=== PATIENT | female | born 1985 | race Caucasian/White ===

== ENCOUNTER 2016-10-14 18:40 | Inpatient (IN) | payer OTHER ==
[~2016-10-14] VITALS: Ht 167.6 cm; Wt 67.4 kg
[~2016-10-14 18:40] MED LIST: IBUPROFEN800 MG PO; SUBOXONE 8 MG-1 EAC2 SL
[2016-10-14 20:03] LABS: EOSINOPHIL (%) 1.4 % (0-5); EOSINOPHIL COUNT 0.1 K/uL (0-0.3); HEMATOCRIT 42.5 % (36.0-46.0); IMMATURE GRANULOCYTE (%) 0.5 % (0.0-0.7); INSTRUMENT ABS NEUTROPHIL CT 2.7 K/uL; LYMPHOCYTE COUNT 2.5 K/uL (1.0-2.8); MCH 32.5 PG (29.0-34.0); MCHC 32.2 G/DL (30.0-36.0); MEAN PLAT.VOLUME 9.7 uM^3 (9.5-12.4); MONOCYTE (%) 8.6 % (3-12); MONOCYTE COUNT 0.5 K/uL (0-0.8); NEUTROPHIL (%) 46.2 % (45-76); NEUTROPHIL COUNT 2.7 K/uL (1.8-6.4); PLATELET COUNT 182 K/uL (156-360); RBC DIS.WIDTH-CV 14.6 % (11.8-14.6); RBC DIS.WIDTH-SD 54.4 % (39-53); RED BLOOD COUNT 4.21 M/uL (3.80-5.20); WHITE BLOOD COUNT 5.8 K/uL (4.1-10.2)
[2016-10-14 20:06] LABS: BASE EXCESS -2.8 mEq/L (-3 to +3); BICARBONATE 23.7 mEq/L (22-26); CARBOXY HGB 6.8 % (0-5); COMMENTS - BLOOD GASES C+A+; DEVICE 840 VENT; FI02 50 %; MECHANICAL RATE 14 resp/min; METHEMOGLOBIN 0.8 % (0-1.5); MODE AC; PCO2 47 mm Hg (35-45); PO2 139 mm Hg (80-100); SITE RR; TIDAL VOLUME 500 ML; TOTAL RESP RATE 14 resp/min; pH 7.31 (7.35-7.45)
[2016-10-14 20:07] LABS: PEEP 5 CM/H20
[2016-10-14 20:16] LABS: ADD MIUA? NO; BILIRUBIN NEGATIVE; BLOOD NEGATIVE; COLOR STRAW ((YELLOW)); GLUCOSE (STRIP) NEGATIVE; KETONES NEGATIVE; LEUKOCYTES NEGATIVE; NITRITE NEGATIVE; PROTEIN (STRIP) NEGATIVE; SPECIFIC GRAVITY 1.002 (1.000-1.030); UROBILINOGEN 0.2 MG/DL (0.2-1.0)
[2016-10-14 20:18] LABS: CHLORIDE 113 mEq/L (99-109); POTASSIUM 3.6 mEq/L (3.7-5.4); SODIUM 145 mEq/L (136-147)
[2016-10-14 20:20] LABS: GLUCOSE 103 mg/dL (70-99)
[2016-10-14 20:21] LABS: ANION GAP 9 MEQ/L (2-14)
[2016-10-14 20:22] LABS: TOTAL BILIRUBIN 0.1 mg/dL (0.0-1.0)
[2016-10-14 20:23] LABS: ALKALINE PHOSPHATASE 93 IU/L (3-129); SERUM ETHYL ALCOHOL 425 mg/dL; TROP-I INTERPRETATION NEGATIVE; TROPONIN-I < 0.01 ng/mL (0.0-0.30)
[2016-10-14 20:24] LABS: GFR ESTIMATE (CALCULATED) > 59 mL/min/
[2016-10-14 20:25] LABS: AMPHETAMINE NEGATIVE (500 ng/mL); BARBITURATES NEGATIVE (200 ng/mL); BENZODIAZEPINES NEGATIVE (150 ng/mL); COCAINE NEGATIVE (150 ng/mL); INTERNAL CONTROLS VALID? YES; METHADONE NEGATIVE (200 ng/mL); METHAMPHETAMINE NEGATIVE (500 ng/mL); OPIATES (MORPHINE) PRESUMPTIVE POSITIVE (100 ng/mL); OXYCODONE NEGATIVE (100 ng/mL); PHENCYCLIDINE NEGATIVE (25 ng/mL); PROPOXYPHENE NEGATIVE (300 ng/mL); THC CANNABINOIDS NEGATIVE (50 ng/mL); TRICYCLIC ANTIDEPRESSANTS NEGATIVE (300 ng/mL)
[2016-10-14 20:25] LABS: UREA NITROGEN (BUN) 5 mg/dL (9-23)
[2016-10-14 20:27] LABS: CREATINE KINASE 50 IU/L (1-294); QUANTITATIVE HCG < 4.0 MIU/ML; TOTAL CK 50 IU/L (1-294)
[2016-10-14 20:28] LABS: CK-MB 0.9 ng/mL (0.0-4.9)
[2016-10-14 20:34] LABS: ADD MEDTOX COMMENT Y
[2016-10-14 23:10] VITALS: BP 107/78
[2016-10-14 23:30] VITALS: BP 125/78
[2016-10-15] VITALS: BP 119/94
[2016-10-15 00:52] LABS: METH RESISTANT S AUREUS PCR POSITIVE (NEGATIVE)
[2016-10-15 00:57] LABS: PROBE CHECK PASS
[2016-10-15 01:00] VITALS: BP 105/75
[2016-10-15 02:00] VITALS: BP 109/71
== END 2016-10-15 01:56 | disposition left against medical advice (07) | DRG 917 ==
LOC: EME 18:40 → EDOF 20:56 → 4WEST 23:11
PROVIDERS: Anesthesiology; Emergency Medicine
DX: T51.0X1A Toxic effect of ethanol, accidental (unintentional), initial encounter (principal); J96.90 Respiratory failure, unspecified, unspecified whether with hypoxia or hypercapnia; T40.601A Poisoning by unspecified narcotics, accidental (unintentional), initial encounter; R40.0 Somnolence; F10.129 Alcohol abuse with intoxication, unspecified; Y90.8 Blood alcohol level of 240 mg/100 ml or more; F11.10 Opioid abuse, uncomplicated; F17.200 Nicotine dependence, unspecified, uncomplicated; J01.30 Acute sphenoidal sinusitis, unspecified
CPT/HCPCS: 36600; 70450; 71010; 80053; 81003; 82550; 82553; 82803; 83605; 83930; 84478; 84484; 84702; 84999; 85025; 85027; 87040; 87070; 87205; 87502; 87641; 94002; 94003; 99202; G0480; J0696; J1650; J2310; J2704; J3010; J7030; J7050; J7120; S0028

== ENCOUNTER 2016-10-23 22:59 | Emergency (ER) | payer OTHER | END 2016-10-23 23:10 | LOC: EME 22:59 | DX: S80.211A Abrasion, right knee, initial encounter (principal); S80.212A Abrasion, left knee, initial encounter; R45.1 Restlessness and agitation; F10.129 Alcohol abuse with intoxication, unspecified; Z02.89 Encounter for other administrative examinations | CPT/HCPCS: 99281; 99283 ==

== ENCOUNTER 2017-01-08 21:26 | Emergency (ER) | payer OTHER ==
[~2017-01-08] VITALS: Ht 165.1 cm; Wt 68.1 kg
[2017-01-08 22:51] LABS: HEMATOCRIT 36.9 % (36.0-46.0); MCH 30.6 PG (29.0-34.0); MCHC 32.8 G/DL (30.0-36.0); MCV 93.2 FL (83-99); MEAN PLAT.VOLUME 9.3 uM^3 (9.5-12.4); PLATELET COUNT 155 K/uL (156-360); RBC DIS.WIDTH-SD 48.3 % (39-53); RED BLOOD COUNT 3.96 M/uL (3.80-5.20); WHITE BLOOD COUNT 5.3 K/uL (4.1-10.2)
[2017-01-08 23:02] LABS: CHLORIDE 109 mEq/L (99-109); SODIUM 145 mEq/L (136-147)
[2017-01-08 23:04] LABS: GLUCOSE 117 mg/dL (70-99)
[2017-01-08 23:05] LABS: ANION GAP 11 MEQ/L (2-14)
[2017-01-08 23:08] LABS: GFR ESTIMATE (CALCULATED) > 59 mL/min/
[2017-01-08 23:09] LABS: UREA NITROGEN (BUN) 6 mg/dL (9-23)
[2017-01-08 23:11] LABS: SALICYLATE < 5.0 MG/DL (15-30)
[2017-01-08 23:14] LABS: AMPHETAMINE NEGATIVE (500 ng/mL); BARBITURATES NEGATIVE (200 ng/mL); BENZODIAZEPINES NEGATIVE (150 ng/mL); COCAINE NEGATIVE (150 ng/mL); INTERNAL CONTROLS VALID? YES; METHADONE NEGATIVE (200 ng/mL); METHAMPHETAMINE NEGATIVE (500 ng/mL); OPIATES (MORPHINE) NEGATIVE (100 ng/mL); OXYCODONE NEGATIVE (100 ng/mL); PHENCYCLIDINE NEGATIVE (25 ng/mL); PROPOXYPHENE NEGATIVE (300 ng/mL); THC CANNABINOIDS NEGATIVE (50 ng/mL); TRICYCLIC ANTIDEPRESSANTS NEGATIVE (300 ng/mL)
[2017-01-08 23:17] LABS: QUANTITATIVE HCG < 4.0 MIU/ML
[2017-01-08 23:34] LABS: SERUM ETHYL ALCOHOL 249 mg/dL
[2017-01-09 07:15] VITALS: BP 110/76
== END 2017-01-09 07:31 | disposition home or self-care (01) ==
LOC: EME → EDBD 21:26 → EME 21:26
PROVIDERS: Emergency Medicine
DX: F10.129 Alcohol abuse with intoxication, unspecified (principal); Y90.8 Blood alcohol level of 240 mg/100 ml or more; F32.9 Major depressive disorder, single episode, unspecified; F17.200 Nicotine dependence, unspecified, uncomplicated
CPT/HCPCS: 80048; 84702; 85027; 90837; 99281; 99284; G0480; J1630; J2250

== ENCOUNTER 2017-01-13 21:11 | Emergency (ER) | payer OTHER ==
[~2017-01-13] VITALS: Ht 165.1 cm; Wt 63.0 kg
[2017-01-13 21:41] VITALS: BP 00/00
== END 2017-01-13 21:44 ==
LOC: EME 21:11
DX: F10.129 Alcohol abuse with intoxication, unspecified (principal); Z53.29 Procedure and treatment not carried out because of patient's decision for other reasons
CPT/HCPCS: 99281; 99282

== ENCOUNTER 2017-04-03 18:28 | Emergency (ER) | payer OTHER ==
[~2017-04-03] VITALS: Ht 165.1 cm; Wt 61.8 kg
[2017-04-03 19:05] VITALS: BP 116/63
== END 2017-04-03 19:07 ==
LOC: EME 18:28
DX: F10.129 Alcohol abuse with intoxication, unspecified (principal); Y90.8 Blood alcohol level of 240 mg/100 ml or more; F17.200 Nicotine dependence, unspecified, uncomplicated
CPT/HCPCS: 99281; 99284

== ENCOUNTER 2017-04-23 21:44 | Inpatient (IN) | payer OTHER ==
[~2017-04-23] VITALS: Ht 167.6 cm; Wt 73.6 kg
[2017-04-23 23:06] LABS: HEMATOCRIT 35.7 % (36.0-46.0); MCH 29.9 PG (29.0-34.0); MCHC 32.8 G/DL (30.0-36.0); MCV 91.3 FL (83-99); MEAN PLAT.VOLUME 9.6 uM^3 (9.5-12.4); PLATELET COUNT 137 K/uL (156-360); RBC DIS.WIDTH-CV 16.4 % (11.8-14.6); RBC DIS.WIDTH-SD 55.3 % (39-53); RED BLOOD COUNT 3.91 M/uL (3.80-5.20); WHITE BLOOD COUNT 4.6 K/uL (4.1-10.2)
[2017-04-23 23:16] LABS: INTER. NORMALIZED RATIO 0.9; PROTHROMBIN TIME 10.3 SEC (10.2-12.9)
[2017-04-23 23:18] LABS: CHLORIDE 106 mEq/L (99-109); POTASSIUM 3.7 mEq/L (3.7-5.4); SODIUM 139 mEq/L (136-147)
[2017-04-23 23:19] LABS: PTT 26.3 SEC (25-37)
[2017-04-23 23:20] LABS: GLUCOSE 104 mg/dL (70-99)
[2017-04-23 23:21] LABS: ANION GAP 11 MEQ/L (2-14)
[2017-04-23 23:22] LABS: TOTAL BILIRUBIN 0.1 mg/dL (0.0-1.0)
[2017-04-23 23:23] LABS: ALKALINE PHOSPHATASE 89 IU/L (3-129)
[2017-04-23 23:24] LABS: GFR ESTIMATE (CALCULATED) > 59 mL/min/
[2017-04-23 23:25] LABS: UREA NITROGEN (BUN) 7 mg/dL (9-23)
[2017-04-23 23:33] LABS: QUANTITATIVE HCG < 4.0 MIU/ML
[2017-04-23 23:59] LABS: SERUM ETHYL ALCOHOL 344 mg/dL
[2017-04-24] MEDS ORDERED: PAXIL30 MG PO (05:53)
[2017-04-24] MEDS ORDERED: VISTARIL50 MG PO (05:54)
[2017-04-24] MEDS ORDERED: DESYREL100 MG PO (05:55)
[2017-04-24 07:02] LABS: AMPHETAMINE NEGATIVE (500 ng/mL); BARBITURATES NEGATIVE (200 ng/mL); BENZODIAZEPINES NEGATIVE (150 ng/mL); COCAINE NEGATIVE (150 ng/mL); INTERNAL CONTROLS VALID? YES; METHADONE NEGATIVE (200 ng/mL); METHAMPHETAMINE NEGATIVE (500 ng/mL); OPIATES (MORPHINE) NEGATIVE (100 ng/mL); OXYCODONE NEGATIVE (100 ng/mL); PHENCYCLIDINE NEGATIVE (25 ng/mL); PROPOXYPHENE NEGATIVE (300 ng/mL); THC CANNABINOIDS NEGATIVE (50 ng/mL); TRICYCLIC ANTIDEPRESSANTS NEGATIVE (300 ng/mL)
[2017-04-24 07:22] VITALS: BP 115/73
[2017-04-24 08:09] LABS: HEMATOCRIT 33.9 % (36.0-46.0); MCV 94.4 FL (83-99)
[2017-04-24] MEDS ORDERED: ZUBSOLV 5.7-1.1 EACH SL (08:59)
[2017-04-24 12:00] VITALS: BP 119/82
[2017-04-24 16:21] VITALS: BP 116/60
[2017-04-24 19:42] LABS: HEMATOCRIT 34.4 % (36.0-46.0); MCV 94.8 FL (83-99)
[2017-04-24 20:40] VITALS: BP 108/66; BP 121/71
[2017-04-25] VITALS (7 sets, daily range): BP systolic 108–116; BP diastolic 65–77
[2017-04-25 09:16] LABS: HEMATOCRIT 35.2 % (36.0-46.0); MCV 97.2 FL (83-99)
[2017-04-25 20:03] LABS: HEMATOCRIT 33.7 % (36.0-46.0); MCV 97.7 FL (83-99)
[2017-04-26 06:52] VITALS: BP 123/89
[2017-04-26] MEDS ORDERED: MULTIVITAMIN1 EAC2 PO ×2 (09:33→14:23)
[2017-04-26] MEDS ORDERED: THIAMINE HCL100 MG PO ×2 (09:33→14:23)
[2017-04-26] MEDS ORDERED: PANTOPRAZOLE SO40 MG PO (09:33)
[2017-04-26] MEDS ORDERED: FOLIC ACID1 MG PO ×2 (09:33→14:23)
[2017-04-26] MEDS ORDERED: NICOTINE PATCH1 EAC2 TD (09:33)
[2017-04-26] MEDS ORDERED: CHLORDIAZEPOXID25 MG PO (09:33)
[2017-04-26] MEDS ORDERED: TRAMADOL HCL50 MG PO (09:33)
[2017-04-26 10:38] LABS: HEMATOCRIT 34.9 % (36.0-46.0); MCH 31.4 PG (29.0-34.0); MCHC 32.1 G/DL (30.0-36.0); MCV 97.8 FL (83-99); MEAN PLAT.VOLUME 10.4 uM^3 (9.5-12.4); PLATELET COUNT 110 K/uL (156-360); RBC DIS.WIDTH-CV 16.1 % (11.8-14.6); RBC DIS.WIDTH-SD 58.3 % (39-53); RED BLOOD COUNT 3.57 M/uL (3.80-5.20); WHITE BLOOD COUNT 4.2 K/uL (4.1-10.2)
[2017-04-26 10:39] LABS: HEMATOCRIT 34.7 % (36.0-46.0); MCV 97.7 FL (83-99)
[2017-04-26 11:23] LABS: ALKALINE PHOSPHATASE 80 IU/L (3-129); ANION GAP 6 MEQ/L (2-14); CHLORIDE 109 MEQ/L (99-109); GFR ESTIMATE (CALCULATED) > 59 mL/min/; GLUCOSE 137 mg/dL (70-99); POTASSIUM 4.1 MEQ/L (3.7-5.4); SAMPLE HEMOLYSIS CHECK 0; SAMPLE ICTERIC CHECK 0; SAMPLE LIPEMIA CHECK 0; SODIUM 143 MEQ/L (136-147); TOTAL BILIRUBIN 0.2 MG/DL (0.0-1.0); UREA NITROGEN (BUN) 6 mg/dL (9-23)
[2017-04-26] MEDS ORDERED: NICORETTE2 M1 BC (12:52)
[2017-04-26] MEDS ORDERED: ADVIL200 MG PO (12:53)
[2017-04-26] MEDS ORDERED: NEURONTIN300 MG PO (12:53)
[2017-04-26 13:25] VITALS: BP 112/72
[2017-04-26] MEDS ORDERED: NEXIUM40 MG PO (16:58)
== END 2017-04-26 15:31 | disposition home or self-care (01) | DRG 378 ==
LOC: EME 21:44 → EDOF 04-24 05:42 → 5EAST 04-24 05:42 → ENRESERV 04-24 05:43 → 5EAST 04-24 07:00 → ENPENDDIS 04-26 → 5EAST 04-26 15:31
PROVIDERS: Emergency Medicine; Hospitalist; Internal Medicine
PROC: 0DB68ZX Excision of Stomach, Via Natural or Artificial Opening Endoscopic, Diagnostic (ICD-10-PCS; principal; 2017-04-25)
DX: K29.21 Alcoholic gastritis with bleeding (principal); D62 Acute posthemorrhagic anemia; K70.10 Alcoholic hepatitis without ascites; F10.229 Alcohol dependence with intoxication, unspecified; Y90.8 Blood alcohol level of 240 mg/100 ml or more; F41.9 Anxiety disorder, unspecified; F17.200 Nicotine dependence, unspecified, uncomplicated
CPT/HCPCS: 74177; 80048; 80053; 80306 90; 83735; 84702; 85014; 85018; 85027; 85610; 85730; 86850; 86900; 86901; 88305; 88342 TC; 99281; 99284; 99285; C9113; G0480; J2060; J2270; J2354; J2405; J3411; J3475; J7030; J7050

== ENCOUNTER 2017-08-16 00:09 | Emergency (ER) | payer OTHER ==
[~2017-08-16] VITALS: Ht 167.6 cm; Wt 84.5 kg
[~2017-08-16 00:09] MED LIST changes: +ADVIL200 MG PO; +CHLORDIAZEPOXID25 MG PO; +DESYREL100 MG PO; +FOLIC ACID1 MG PO; +MULTIVITAMIN1 EAC2 PO; +NEURONTIN300 MG PO; +NEXIUM40 MG PO; +NICORETTE2 M1 BC; +NICOTINE PATCH1 EAC2 TD; +PANTOPRAZOLE SO40 MG PO; +PAXIL30 MG PO; +THIAMINE HCL100 MG PO; +TRAMADOL HCL50 MG PO; +VISTARIL50 MG PO; +ZUBSOLV 5.7-1.1 EACH SL
[2017-08-16 09:35] VITALS: BP 108/59
== END 2017-08-16 09:39 | disposition home or self-care (01) ==
LOC: EME 00:09
DX: F10.129 Alcohol abuse with intoxication, unspecified (principal); F41.9 Anxiety disorder, unspecified; F17.200 Nicotine dependence, unspecified, uncomplicated
CPT/HCPCS: 82948; 99281; 99284; J1630

== ENCOUNTER 2017-08-29 17:09 | Emergency (ER) | payer OTHER ==
[~2017-08-29] VITALS: Ht 167.6 cm; Wt 75.0 kg
[2017-08-29 17:56] VITALS: BP 124/85
== END 2017-08-29 17:56 ==
LOC: EME 17:09
DX: F10.129 Alcohol abuse with intoxication, unspecified (principal); F32.9 Major depressive disorder, single episode, unspecified; Z02.89 Encounter for other administrative examinations
CPT/HCPCS: 99281; 99283

== ENCOUNTER 2017-08-30 02:52 | Emergency (ER) | payer OTHER ==
[~2017-08-30] VITALS: Ht 167.6 cm; Wt 77.8 kg
[2017-08-30 04:04] VITALS: BP 120/72
== END 2017-08-30 04:06 ==
LOC: EME 02:52
DX: S60.222A Contusion of left hand, initial encounter (principal); Y35.893A Legal intervention involving other specified means, suspect injured, initial encounter; F41.9 Anxiety disorder, unspecified; F17.200 Nicotine dependence, unspecified, uncomplicated
CPT/HCPCS: 73130; 99281; 99283

== ENCOUNTER 2017-11-24 21:02 | Emergency (ER) | payer OTHER ==
[~2017-11-24] VITALS: Ht 167.6 cm; Wt 83.6 kg
[2017-11-24 21:50] LABS: HEMATOCRIT 31.8 % (36.0-46.0); HEMOGLOBIN 10.4 G/DL (11.9-15.5); MCH 28.9 PG (29.0-34.0); MCHC 32.7 G/DL (30.0-36.0); MCV 88.3 FL (83-99); PLATELET COUNT 187 K/uL (156-360); RBC DIS.WIDTH-CV 17.7 % (11.8-14.6); RBC DIS.WIDTH-SD 57.1 % (39-53); WHITE BLOOD COUNT 7.7 K/uL (4.1-10.2)
[2017-11-24 22:03] LABS: ALBUMIN 4.3 g/dL (3.2-4.8)
[2017-11-24 22:04] LABS: CHLORIDE 98 mEq/L (99-109); POTASSIUM 4.1 mEq/L (3.7-5.4); SODIUM 132 mEq/L (136-147)
[2017-11-24 22:06] LABS: GLUCOSE 87 mg/dL (70-99); TOTAL PROTEIN 7.4 g/dL (6.4-8.3)
[2017-11-24 22:08] LABS: TOTAL BILIRUBIN 0.2 mg/dL (0.0-1.0)
[2017-11-24 22:09] LABS: ALKALINE PHOSPHATASE 104 IU/L (3-129)
[2017-11-24 22:10] LABS: CREATININE 0.8 mg/dL (0.6-1.3); GFR ESTIMATE (CALCULATED) > 59 mL/min/
[2017-11-24 22:11] LABS: AST (GOT) 24 IU/L (2-34); UREA NITROGEN (BUN) 11 mg/dL (9-23)
[2017-11-24 22:13] LABS: ALT (GPT) 16 IU/L (3-49)
[2017-11-24 22:20] LABS: QUANTITATIVE HCG < 4.0 MIU/ML
[2017-11-24 23:53] LABS: APPEARANCE CLEAR ((CLEAR)); BILIRUBIN NEGATIVE; BLOOD NEGATIVE; COLOR STRAW ((YELLOW)); GLUCOSE (STRIP) NEGATIVE; KETONES NEGATIVE; LEUKOCYTES NEGATIVE; NITRITE NEGATIVE; PROTEIN (STRIP) NEGATIVE; SPECIFIC GRAVITY 1.003 (1.000-1.030); UCUL ADDED? NO; UROBILINOGEN 0.2 MG/DL (0.2-1.0)
[2017-11-25] MEDS ORDERED: NAPROXEN500 MG PO (00:54)
[2017-11-25 01:05] VITALS: BP 124/80
== END 2017-11-25 01:12 | disposition home or self-care (01) ==
LOC: EME 21:02
DX: R59.0 Localized enlarged lymph nodes (principal); G89.29 Other chronic pain; M54.5 Low back pain; I10 Essential (primary) hypertension; F41.9 Anxiety disorder, unspecified; F17.200 Nicotine dependence, unspecified, uncomplicated
CPT/HCPCS: 76705; 80053; 81003; 84702; 85027; 99281; 99284; J1885

== ENCOUNTER 2017-11-26 21:07 | Emergency (ER) | payer OTHER ==
[~2017-11-26] VITALS: Ht 160 cm; Wt 80.0 kg
[~2017-11-26 21:07] MED LIST changes: +NAPROXEN500 MG PO
[2017-11-26 21:31] LABS: HEMATOCRIT 33.6 % (36.0-46.0); HEMOGLOBIN 10.9 G/DL (11.9-15.5); MCH 28.6 PG (29.0-34.0); MCHC 32.4 G/DL (30.0-36.0); MCV 88.2 FL (83-99); PLATELET COUNT 173 K/uL (156-360); RBC DIS.WIDTH-CV 17.9 % (11.8-14.6); RBC DIS.WIDTH-SD 57.5 % (39-53); RED BLOOD COUNT 3.81 M/uL (3.80-5.20); WHITE BLOOD COUNT 4.9 K/uL (4.1-10.2)
[2017-11-26 21:44] LABS: AMPHETAMINE NEGATIVE (500 ng/mL); BARBITURATES NEGATIVE (200 ng/mL); BENZODIAZEPINES NEGATIVE (150 ng/mL); BUPRENORPHINE NEGATIVE (10 ng/mL); COCAINE NEGATIVE (150 ng/mL); METHADONE NEGATIVE (200 ng/mL); METHAMPHETAMINE NEGATIVE (500 ng/mL); OPIATES (MORPHINE) NEGATIVE (100 ng/mL); OXYCODONE NEGATIVE (100 ng/mL); PHENCYCLIDINE NEGATIVE (25 ng/mL); PROPOXYPHENE NEGATIVE (300 ng/mL); THC CANNABINOIDS NEGATIVE (50 ng/mL); TRICYCLIC ANTIDEPRESSANTS NEGATIVE (300 ng/mL)
[2017-11-26 21:47] LABS: ALBUMIN 4.4 g/dL (3.2-4.8); CHLORIDE 106 mEq/L (99-109)
[2017-11-26 21:49] LABS: GLUCOSE 103 mg/dL (70-99); TOTAL PROTEIN 7.3 g/dL (6.4-8.3)
[2017-11-26 21:52] LABS: SERUM ETHYL ALCOHOL 344 mg/dL; SODIUM 141 mEq/L (136-147); TOTAL BILIRUBIN 0.1 mg/dL (0.0-1.0)
[2017-11-26 21:53] LABS: ALKALINE PHOSPHATASE 117 IU/L (3-129); CREATININE 0.7 mg/dL (0.6-1.3); GFR ESTIMATE (CALCULATED) > 59 mL/min/
[2017-11-26 21:54] LABS: AST (GOT) 22 IU/L (2-34); UREA NITROGEN (BUN) 6 mg/dL (9-23)
[2017-11-26 21:56] LABS: ALT (GPT) 16 IU/L (3-49)
[2017-11-26 22:28] VITALS: BP 127/82
== END 2017-11-26 22:30 ==
LOC: EME → EDBD 21:07 → EME 21:07
PROVIDERS: Emergency Medicine
DX: Z02.89 Encounter for other administrative examinations (principal); F10.129 Alcohol abuse with intoxication, unspecified; Y90.8 Blood alcohol level of 240 mg/100 ml or more; I10 Essential (primary) hypertension; F41.9 Anxiety disorder, unspecified; F17.200 Nicotine dependence, unspecified, uncomplicated
CPT/HCPCS: 80053; 85027; 99281; 99283; G0480